=== PATIENT | male | born 1990 | race Caucasian/White ===

== ENCOUNTER 2020-01-01 19:07 | Emergency (ER) | payer MEDICAID ==
[~2020-01-01] VITALS: Ht 167.6 cm; Wt 84.5 kg
[2020-01-01 19:21] VITALS: BP 125/65
[2020-01-01] MEDS ORDERED: HYDR-3965 PO (22:12)
[2020-01-01] MEDS ORDERED: ibuprofen tablet 400 MG TABLET PO ONE (22:15)
== END 2020-01-01 22:52 | disposition home or self-care (01) ==
LOC: ER 19:08
DX: M25.511 Pain in right shoulder (principal); Z88.8 Allergy status to other drugs, medicaments and biological substances; X50.1XXA Overexertion from prolonged static or awkward postures, initial encounter; Y93.89 Activity, other specified; Y92.89 Other specified places as the place of occurrence of the external cause; Y99.9 Unspecified external cause status
CPT/HCPCS: 29105; 73030; 99283